=== PATIENT | female | born 1980 | race Two or more races ===

== ENCOUNTER 2022-12-26 22:56 | Emergency (ER) | payer OTHER ==
[~2022-12-26] VITALS: Ht 157.5 cm; Wt 66.7 kg
[2022-12-26] MEDS ORDERED: PRENATAL MULTI1 EAC3 (23:06)
== END 2022-12-27 03:02 | disposition home or self-care (01) ==
LOC: ER 22:56
DX: O20.9 Hemorrhage in early pregnancy, unspecified (principal); Z3A.01 Less than 8 weeks gestation of pregnancy